=== PATIENT | male | born 1995 | race Two or more races ===

== ENCOUNTER 2017-01-14 22:25 | Emergency (ER) | payer SELFPAY ==
[2017-01-14 22:30] VITALS: RESP 16
--- NOTE | 2017-01-14 22:43 | EDPHY ---
H & P Stated Complaint: SOB, Weak, N/V HPI/ROS: HPI CHIEF COMPLAINT: Acute anxiety HISTORY OF PRESENT ILLNESS: This patient 21-year-old male, denies having any significant medical history presents emergency room by private vehicle stating that he has tingling around his mouth and tingling in his hands he had carpopedal spasms, states around 530 this evening he felt short of breath he got very anxious he started hyperventilating with numbness and tingling throughout his body. Tells me had nausea with multiple episodes of vomiting. He denies chest pain. He does admit to having shortness of breath. Feels very anxious. He tells me this is his 3rd ER visit for similar symptoms he tells me usually gets an angiolytic through his IV and improved. Past Medical History: Anxiety Past Surgical History: Denies recent surgical history Social History: Smokes marijuana daily, denies alcohol or illicit drugs Family History: Noncontributory ROS REVIEW OF SYSTEMS: A comprehensive 10 point review of systems is otherwise negative aside from elements mentioned in the history of present illness. Exam Constitutional anxious, triage nursing summary reviewed, vital signs reviewed, awake/alert. Eyes normal conjunctivae and sclera, EOMI, PERRLA. HENT normal inspection, atraumatic, moist mucus membranes, no epistaxis, neck supple/ no meningismus, no raccoon eyes. Respiratory clear to auscultation bilaterally, normal breath sounds, no respiratory distress, no wheezing. Cardiovascular rate normal, regular rhythm, no murmur, no edema, distal pulses normal. Gastrointestinal soft, non-tender, no rebound, no guarding, normal bowel sounds, no distension, no pulsatile mass. Genitourinary no CVA tenderness. Musculoskeletal no midline vertebral tenderness, full range of motion, no calf swelling, no tenderness of extremities, no meningismus, good pulses, neurovascularly intact. Skin pink, warm, & dry, no rash, skin atraumatic. Neurologic awake, alert and oriented x 3, AAOx3, moves all 4 extremities equally, motor intact, sensory intact, CN II-XII intact, normal cerebellar, normal vision, normal speech. Psychiatric anxious Heme/Lymph/Immune no lymphadenopathy. Differential Diagnosis: Includes but is not limited to in a particular order, acute anxiety, panic attack, electrolyte disturbance, dehydration, pneumothorax , pneumonia Medical Decision Making: Plan for this patient IV establishment, IV fluid bolus , IV Ativan for acute anxiety, IV Zofran for nausea, check basic blood work, EKG troponin. Re-evaluation: EKG interpretation by me on record in [employer] system. Impression time of EKG 2311, this is sinus rhythm rate of 79 no acute ischemia appreciated. No ST elevation ST depression or significant T-wave abnormalities. Intervals are appropriate. ED x-ray chest one view: Negative for acute cardiopulmonary disease. 1216AM: Re-examination at this time. Patient is feeling much better after IV Ativan and IV fluids. He states he anxiety is now resolved. Would like to go home. I explained that I will give him a very limited supply of Ativan pills. He understands that he gets anxiety or panic attack to try to control his breathing. Realize that he is having anxiety attack. And if he needs he can't take an Ativan pill. Recommend following up his primary care doctor as well. His chest x-ray, EKG and blood work were reassuring he did have a slightly low fossa. I did give him a phosphorus pack. He understands return emergency room if develops any worsening symptoms questions or concerns. Source: Patient - Personal History Current Tetanus Diphtheria and Acellular Pertussis (TDAP): Yes - Medical/Surgical History Hx Asthma: No Hx Chronic Respiratory Disease: No Hx Diabetes: No Hx Cardiac Disease: No Hx Renal Disease: No Hx Cirrhosis: No Hx Alcoholism: No Hx HIV/AIDS: No Hx Splenectomy or Spleen Trauma: No Other PMH: none - Social History Smoking Status: Never smoked Constitutional: Initial Vital Signs Temperature (C) 36.3 C 01/14/17 22:28 Heart Rate 98 01/14/17 22:28 Respiratory Rate 16 01/14/17 22:28 Blood Pressure 142/87 H 01/14/17 22:28 O2 Sat (%) 100 01/14/17 22:28 O2 Delivery Mode Room Air Allergies/Adverse Reactions: No Known Allergies Allergy (Unverified 01/14/17 22:28) Home Medications: Medication Instructions Recorded LORazepam [Ativan (*)] 1 mg PO DAILY #5 tab 01/15/17 Medical Decision Making - Diagnostics Imaging Results: Imaging Impressions Chest X-Ray 01/14/17 22:46 Impression: No acute findings in the chest. - Data Points Laboratory Results: Laboratory Results 01/14/17 22:51 01/14/17 22:51 01/14/17 01/14/17 22:51 22:51 WBC 14.93 10^3/uL H 10^3/uL (3.80-9.50) RBC 5.09 10^6/uL 10^6/uL (4.40-6.38) Hgb 16.2 g/dL g/dL (13.7-17.5) Hct 45.4 % % (40.0-51.0) MCV 89.2 fL fL (81.5-99.8) MCH 31.8 pg pg (27.9-34.1) MCHC 35.7 g/dL g/dL (32.4-36.7) RDW 12.2 % % (11.5-15.2) Plt Count 249 10^3/uL 10^3/uL (150-400) MPV 11.1 fL fL (8.7-11.7) Neut % (Auto) 84.4 % H % (39.3-74.2) Lymph % (Auto) 9.6 % L % (15.0-45.0) [place] % (Auto) 5.0 % % (4.5-13.0) Eos % (Auto) 0.0 % L % (0.6-7.6) Baso % (Auto) 0.5 % % (0.3-1.7) Nucleat RBC Rel Count 0.0 % % (0.0-0.2) Absolute Neuts (auto) 12.60 10^3/uL H 10^3/uL (1.70-6.50) Absolute Lymphs (auto) 1.44 10^3/uL 10^3/uL (1.00-3.00) Absolute Monos (auto) 0.74 10^3/uL 10^3/uL (0.30-0.80) Absolute Eos (auto) 0.00 10^3/uL L 10^3/uL (0.03-0.40) Absolute Basos (auto) 0.08 10^3/uL 10^3/uL (0.02-0.10) Absolute Nucleated RBC 0.00 10^3/uL 10^3/uL (0-0.01) Immature Gran % 0.5 % % (0.0-1.1) Immature Gran # 0.07 10^3/uL 10^3/uL (0.00-0.10) Sodium 143 mEq/L mEq/L (134-144) Potassium 3.7 mEq/L mEq/L (3.5-5.2) Chloride 107 mEq/L mEq/L (97-110) Carbon Dioxide 18 mEq/l L mEq/l (22-31) Anion Gap 18 mEq/L H mEq/L (8-16) BUN 16 mg/dL mg/dL (7-23) Creatinine 0.7 mg/dL mg/dL (0.7-1.3) Estimated GFR > 60 Glucose 136 mg/dL H mg/dL (70-100) Calcium 10.7 mg/dL H mg/dL (8.5-10.4) Phosphorus 1.5 mg/dL L mg/dL (2.5-4.5) Total Bilirubin 1.0 mg/dL mg/dL (0.1-1.4) Conjugated Bilirubin 0.4 mg/dL mg/dL (0.0-0.5) Unconjugated Bilirubin 0.6 mg/dL mg/dL (0.0-1.1) AST 32 IU/L IU/L (17-59) ALT 28 IU/L IU/L (21-72) Alkaline Phosphatase 141 IU/L H IU/L (38-126) Troponin I < 0.012 ng/mL ng/mL (0-0.034) Total Protein 8.8 g/dL H g/dL (6.3-8.2) Albumin 5.3 g/dL H g/dL (3.5-5.0) Lipase 45.0 IU/L IU/L (23-300) Medications Given: Discontinued Medications Sodium Chloride (Ns) 1,000 mls @ 0 mls/hr IV ONCE ONE PRN Reason: Wide Open Stop: 01/14/17 22:47 Last Admin: 01/14/17 23:04 Dose: 1,000 mls Lorazepam (Ativan Injection) 1 mg IVP EDNOW ONE Stop: 01/14/17 22:47 Last Admin: 01/14/17 23:04 Dose: 1 mg Ondansetron HCl (Zofran) 4 mg IVP EDNOW ONE Stop: 01/14/17 22:47 Last Admin: 01/14/17 23:04 Dose: 4 mg Departure - Departure Disposition: Home, Routine, Self-Care Clinical Impression: Acute anxiety Condition: Good Instructions: Anxiety (ED) Additional Instructions: 1. Please return emergency room if develops any worsening symptoms questions or concerns includes chest pain or shortness of breath nausea vomiting. Referrals: NONE *PRIMARY CARE P,. [Primary Care Provider] - As per Instructions Prescriptions: LORazepam [Ativan (*)] 1 mg PO DAILY #5 tab
[2017-01-14] MEDS ORDERED: LORazepam 2 MG/ML INJ IVP ONE (22:46)
[2017-01-14] MEDS ORDERED: NS 1,000 ML IV ONE (22:46)
[2017-01-14] MEDS ORDERED: ONDANSETRON 4 MG/2 ML VIAL IVP ONE (22:46)
[2017-01-14 22:57] LABS: % IMMATURE GRANULYOCYTES 0.5 % (0.0-1.1); ABSOLUTE IMMATURE GRANULOCYTES 0.07 10^3/uL (0.00-0.10); ADD DIFF? NO; ADD MORPH? NO; ADD SCAN? NO; ATYPICAL LYMPHOCYTE FLAG 0 (0-99); FRAGMENT RBC FLAG 0 (0-99); HEMATOCRIT 45.4 % (40.0-51.0); HEMOGLOBIN 16.2 g/dL (13.7-17.5); LEFT SHIFT FLG 0 (0-99); LIPEMIA HEMOLYSIS FLAG 90 (0-99); MEAN CELL HEMOGLOBIN 31.8 pg (27.9-34.1); MEAN CELL HEMOGLOBIN CONCENTR. 35.7 g/dL (32.4-36.7); MEAN CELL VOLUME 89.2 fL (81.5-99.8); MEAN PLATELET VOLUME 11.1 fL (8.7-11.7); PLATELET CLUMPS FLAG 0 (0-99); PLATELET COUNT 249 10^3/uL (150-400); RED BLOOD CELL COUNT 5.09 10^6/uL (4.40-6.38); RED CELL DISTRIBUTION WIDTH 12.2 % (11.5-15.2)
[2017-01-14 23:12] LABS: ALANINE AMINOTRANSFERASE 28 IU/L (21-72); ALBUMIN 5.3 g/dL (3.5-5.0); ALKALINE PHOSPHATASE 141 IU/L (38-126); ANION GAP 18 mEq/L (8-16); ASPARTATE AMINOTRANSFERASE 32 IU/L (17-59); BILIRUBIN-CONJUGATED 0.4 mg/dL (0.0-0.5); BILIRUBIN-UNCONJUGATED 0.6 mg/dL (0.0-1.1); CALCIUM 10.7 mg/dL (8.5-10.4); CARBON DIOXIDE 18 mEq/l (22-31); CHLORIDE 107 mEq/L (97-110); CREATININE 0.7 mg/dL (0.7-1.3); GLOMERULAR FILTRATION RATE > 60; GLUCOSE 136 mg/dL (70-100); POTASSIUM 3.7 mEq/L (3.5-5.2); SODIUM 143 mEq/L (134-144); TOTAL PROTEIN 8.8 g/dL (6.3-8.2)
--- NOTE | 2017-01-14 23:14 | CPEKG ---
Heart Rate: 79 RR Interval: 759 P-R Interval: 156 QRSD Interval: 82 QT Interval: 380 QTC Interval: 436 P [place]: 20 QRS [place]: 51 T Wave [place]: 8 EKG Severity - BORDERLINE ECG - EKG Impression: SINUS RHYTHM EKG Impression: INFERIOR Q WAVES, PROBABLY NORMAL VARIATION Electronically Signed By: Skyler Peralta 15-Jan-2017 07:35:04
[2017-01-14 23:23] LABS: TROPONIN I < 0.012 ng/mL (0-0.034)
[2017-01-15 00:31] VITALS: BP 131/66; PULSE 66; TEMP 97.9; O2SAT 96
[2017-01-15] MEDS ORDERED: POTASSIUM/SODIUM PHOSPHATE 1 PKT PO SCH (09:00)
== END 2017-01-15 00:31 | disposition home or self-care (01) ==
DX: F41.9 Anxiety disorder, unspecified (principal)
CPT/HCPCS: 96374; J2060; J2405